=== PATIENT | female | born 1945 | race American Indian/Alaskan Native ===

== ENCOUNTER 2020-07-16 20:24 | Emergency (ER) | payer MEDICARE ==
[2020-07-16 23:53] LABS: Basophils % (Auto) 0.3 % (0.0-1.8); Eosinophils # (Auto) 0.3 K/mm3 (0.0-0.4); Eosinophils % (Auto) 2.9 % (0.0-4.3); Hematocrit 32.7 % (30.3-42.9); Hemoglobin 10.5 gm/dl (10.1-14.3); Lymphocytes # (Auto) 1.4 K/mm3 (1.2-5.4); Lymphocytes % (Auto) 12.1 % (13.4-35.0); Mean Corpuscular HGB Conc 32 % (30-34); Mean Corpuscular Volume 86 fl (79-97); Monocytes # (Auto) 1.3 K/mm3 (0.0-0.8); Monocytes % (Auto) 11.3 % (0.0-7.3); Platelet Count 235 K/mm3 (140-440); Red Cell Distribution Width 17.6 % (13.2-15.2)
[2020-07-16] MEDS ORDERED: fentaNYL 100 MCG/2 ML INJ IV ONE (23:56)
[2020-07-16] MEDS ORDERED: ONDANSETRON 4 MG/2 ML INJ IV ONE (23:56)
--- NOTE | 2020-07-17 00:01 | Emergency Department Report ---
HPI - General Chief Complaint: Abdominal Pain Time Seen by Provider: 07/16/20 23:45 - HPI HPI: Room 40 The patient is a 75-year-old female present with a chief complaint of abdominal pain. The patient has been complaining of right lower quadrant pain i ntermittently for the past week. Patient denies any preceding trauma or history of fever. Patient admits to nausea but denies vomiting. Patient admits to occasional dysuria for the past week. The patient made the complaint while at her orthopedic surgery appointment and had an x-ray performed and they stated they saw a new bony lesion in that region. Patient has a history of multiple myeloma ED Past Medical Hx - Past Medical History Previous Medical History?: Yes Hx Hypertension: Yes Hx of Cancer: Yes (multiple myeloma) Hx Psychiatric Treatment: Yes (dementia) Hx COPD: Yes - Surgical History Past Surgical History?: Yes Hx Appendectomy: Yes Additional Surgical History: Hysterectomy, R femur yesenia and L arm yesenia. - Family History Family history: no significant - Social History Smoking Status: Former Smoker (None x3-month) Substance Use Type: None - Medications Home Medications: Home Medications Medication Instructions Recorded Confirmed Last Taken Type oxyCODONE /ACETAMINOPHEN [Percocet 1 tab PO Q4HR #20 tablet 12/01/15 Unknown Rx 5/325] levoFLOXacin [Levaquin TAB] 500 mg PO QDAY #7 tablet 07/17/20 Unknown Rx ED Review of Systems ROS: Stated complaint: BODY PAIN Other details as noted in HPI Constitutional: denies: fever Eyes: denies: eye pain ENT: denies: throat pain Respiratory: no symptoms reported Cardiovascular: denies: chest pain Endocrine: no symptoms reported Gastrointestinal: abdominal pain, nausea. denies: vomiting Genitourinary: dysuria Neurological: denies: headache Physical Exam - Physical Exam Vital Signs: Vital Signs 07/16/20 23:00 Temperature 98.6 F Pulse Rate 70 Respiratory 12 Rate Blood Pressure 102/47 [Right] O2 Sat by Pulse 100 Oximetry Physical Exam: GENERAL: The patient is well-developed well-nourished female lying on stretcher not appearing to be in acute distress. [] HEENT: Normocephalic. Atraumatic. Extraocular motions are intact. Patient has moist mucous membranes. NECK: Supple. Trachea midline CHEST/LUNGS: Clear to auscultation. There is no respiratory distress noted. HEART/CARDIOVASCULAR: Regular. There is no tachycardia. There is no gallop rub or murmur. ABDOMEN: Abdomen is soft, with tenderness palpation right lower quadrant there is no rebound or guarding. Patient has normal bowel sounds. There is no abdominal distention. SKIN: There is no rash. There is no edema. There is no diaphoresis. NEURO: The patient is awake, alert, and oriented. The patient is cooperative. The patient has normal speech MUSCULOSKELETAL: There is no evidence of acute injury. ED Course Vital Signs 07/16/20 23:00 Temperature 98.6 F Pulse Rate 70 Respiratory 12 Rate Blood Pressure 102/47 [Right] O2 Sat by Pulse 100 Oximetry ED Medical Decision Making - Lab Data Result diagrams: 07/16/20 23:12 07/16/20 23:12 Laboratory Tests 07/16/20 07/16/20 07/17/20 23:12 23:12 00:15 WBC 11.8 H RBC 3.80 Hgb 10.5 Hct 32.7 MCV 86 MCH 28 MCHC 32 RDW 17.6 H Plt Count 235 Lymph % (Auto) 12.1 L Rich % (Auto) 11.3 H Eos % (Auto) 2.9 Baso % (Auto) 0.3 Lymph # (Auto) 1.4 Rich # (Auto) 1.3 H Eos # (Auto) 0.3 Baso # (Auto) 0.0 Seg Neutrophils % 73.4 H Seg Neutrophils # 8.7 H Sodium 142 Potassium 3.0 L Chloride 101.7 Carbon Dioxide 29 Anion Gap 14 BUN 12 Creatinine 0.4 L Estimated GFR > 60 BUN/Creatinine Ratio 30 Glucose 81 Calcium 7.9 L Total Bilirubin 0.20 AST 6 ALT < 5 L Alkaline Phosphatase 73 Total Protein 4.9 L Albumin 3.0 L Albumin/Globulin Ratio 1.6 Lipase 32 Urine Color Yellow Urine Turbidity Cloudy Urine pH 7.0 Ur Specific [place] 1.012 Urine Protein <15 mg/dl Urine Glucose (UA) Neg Urine Ketones Neg Urine Blood Neg Urine Nitrite Pos Urine Bilirubin Neg Urine Urobilinogen < 2.0 Ur Leukocyte Esterase Tr Urine WBC (Auto) 6.0 Urine RBC (Auto) 1.0 U Epithel Cells (Auto) 3.0 Urine Bacteria (Auto) 1+ Urine Mucus Few - Radiology Data Radiology results: report reviewed (CT abdomen pelvis), image reviewed (CT abdomen pelvis) [facility] [address] [place] [address] Cat Scan Report Signed Patient: YENY JENNINGS MR#: [id number] 800 : 1945 Acct:[id number] Age/Sex: 75 / F ADM Date: 07/16/20 Loc: ED Attending Dr: Ordering Physician: AARON BROWN MD Date of Service: 07/16/20 Procedure(s): CT abdomen pelvis w con Accession Number(s): [id number] cc: AARON BROWN MD CT abdomen pelvis w con INDICATION: Right Lower Quadrant Abd Pain. Hx of Multiple myeloma. TECHNIQUE: All CT scans at this location are performed using the following dose modulation technique: Automated exposure control. Helical slices were obtained through the abdomen and pelvis following the administration 100 cc of Omnipaque 300 COMPARISON: CT scan dated 12/01/2015 FINDINGS: Abdomen: There is bullous disease noted in the lung bases similar to the previous study. Liver, spleen, pancreas, adrenal glands, and kidneys show no acute abnormality. The aorta is normal in diameter. There is no adenopathy. There is no obstruction, inflammation, or free air. There are no abnormal fluid collections. Gallbladder is grossly unremarkable. Pelvis: The appendix is not seen. There is no inflammatory change to suggest appendicitis. There is no obstruction, inflammation, or free air. There are no abnormal fluid collections. The urinary bladder is grossly unremarkable. On review of bone windows, there is hardware n oted in the right proximal femur. There is a lytic lesion in the left iliac bone which was not present previously. There is a lesion in the T12 vertebral body which is also new. IMPRESSION: 1. There is no obstruction, inflammation, or free air. There are no abnormal fluid collections. 2. Lytic lesions in T12 and in the left iliac bone correlate to the patient's history of multiple myeloma. These were not present in 2016 Signer Name: Quincy Gordon MD Signed: 07/17/2020 3:49 AM Workstation Name: [id number] Transcribed By: Dictated By: Quincy Gordon MD Electronically Authenticated By: Quincy Gordon MD Signed Date/Time: 07/17/20348 DD/ 9 TD/TT: - Differential Diagnosis Cystitis, enteritis, multiple myeloma lesion, colitis Critical care attestation.: If time is entered above; I have spent that time in minutes in the direct care of this critically ill patient, excluding procedure time. ED Disposition Clinical Impression: Acute abdominal pain, Bacteriuria, Hypokalemia Disposition: TO HOME OR SELFCARE Is pt being admited?: No Does the pt Need Aspirin: No Condition: Stable Instructions: Abdominal Pain (ED), Abdominal Pain, Adult, [id number] Additional Instructions: Return to the emergency department should you develop worsening symptoms, inability to tolerate food or liquids, high fever or any other concerns Prescriptions: levoFLOXacin [Levaquin TAB] 500 mg PO QDAY #7 tablet Referrals: PRIMARY CARE, [Primary Care Provider] - 3-5 Days Time of Disposition: 04:08
[2020-07-17 00:09] LABS: Blood Urea Nitrogen 12 mg/dL (7-17); Calcium 7.9 mg/dL (8.4-10.2); Hemolysis Index 6
[2020-07-17 00:10] LABS: Alanine Aminotransferase < 5 units/L (7-56); BUN/Creatinine Ratio 30
[2020-07-17 00:53] LABS: Bacteria,Urine 1+ /HPF (Negative); Bilirubin,Urine NEG (Negative); Blood,Urine NEG (Negative); Color,Urine Yellow (Yellow); Mucus,Urine FEW /HPF; Protein,Urine <15 mg/dL mg/dL (Negative); Urobilinogen,Urine < 2.0 mg/dL (<2.0)
[2020-07-17] MEDS ORDERED: POTASSIUM CHLORIDE ER 20 MEQ TAB PO ONE (00:57)
[2020-07-17] MEDS ORDERED: fentaNYL 100 MCG/2 ML INJ IV ONE (02:34)
[2020-07-17 02:55] VITALS: BP 118/71
--- NOTE | 2020-07-17 03:53 | Cat Scan Report ---
CT abdomen pelvis w con INDICATION: Right Lower Quadrant Abd Pain. Hx of Multiple myeloma. TECHNIQUE: All CT scans at this location are performed using the following dose modulation technique: Automated exposure control. Helical slices were obtained through the abdomen and pelvis following the administr ation 100 cc of Omnipaque 300 COMPARISON: CT scan dated 12/01/2015 FINDINGS: Abdomen: There is bullous disease noted in the lung bases similar to the previous study. Liver, spleen, pancreas, adrenal glands, and kidneys show no acute abnormality. The aorta is normal i n diameter. There is no adenopathy. There is no obstruction, inflammation, or free air. There are no abnormal fluid collections. Gallbladder is grossly unremarkable. Pelvis: The appendix is not seen. There is no inflammatory change to suggest appendicitis. There is no obstruction, inflammation, or free air. There are no abnormal fluid collections. The urin dione bladder is grossly unremarkable. On review of bone windows, there is hardware noted in the right proximal femur. There is a lytic lesi on in the left iliac bone which was not present previously. There is a lesion in the T12 vertebral [place] dy which is also new. IMPRESSION: 1. There is no obstruction, inflammation, or free air. There are no abnormal fluid collections. 2. Lytic lesions in T12 and in the left iliac bone correlate to the patient's history of multiple mye earl. These were not present in 2016 Signer Name: Quincy Gordon MD Signed: 07/17/2020 3:49 AM Workstation Name: [id number]
[2020-07-17] MEDS ORDERED: HYDROmorphone 1 MG/1 ML INJ IV ONE (04:07)
== END 2020-07-17 04:36 | disposition home or self-care (01) ==
LOC: ED 20:24
DX: R82.71 Bacteriuria (principal); E87.6 Hypokalemia; R10.31 Right lower quadrant pain; I10 Essential (primary) hypertension; F03.90 Unspecified dementia, unspecified severity, without behavioral disturbance, psychotic disturbance, mood disturbance, and anxiety; J44.9 Chronic obstructive pulmonary disease, unspecified; Z79.899 Other long term (current) drug therapy; Z90.710 Acquired absence of both cervix and uterus; Z98.890 Other specified postprocedural states; Z90.49 Acquired absence of other specified parts of digestive tract; Z87.891 Personal history of nicotine dependence
CPT/HCPCS: 36415; 74177; 80053; 81001; 83690; 85025; 96374; 96375; 96376; 99284; J1170; J2405; J3010; Q9967